=== PATIENT | female | born 1990 | race Asian ===

== ENCOUNTER → 2022-05-16 | Outpatient (CLI) | payer OTHER | LOC: M WHC 08:49 | PROVIDERS: ATTEND Registered Nurse | DX: Z36.89 Encounter for other specified antenatal screening (principal); O32.1XX0 Maternal care for breech presentation, not applicable or unspecified; Z3A.20 20 weeks gestation of pregnancy; O28.3 Abnormal ultrasonic finding on antenatal screening of mother ==

== ENCOUNTER 2022-09-11 17:19 | Emergency (ER) | payer OTHER ==
[~2022-09-11] VITALS: Ht 152.4 cm; Wt 60.8 kg
[2022-09-11 17:20] VITALS: BP 118/76; TEMP 97.9; O2SAT 97
[2022-09-11] MEDS ORDERED: PRENTAB9 PO (18:17)
== END 2022-09-11 19:44 | disposition admitted as inpatient to this hospital (09) ==
LOC: M ED 17:19
DX: Z53.21 Procedure and treatment not carried out due to patient leaving prior to being seen by health care provider (principal)

== ENCOUNTER 2022-09-11 17:29 | Outpatient (CLI) | payer OTHER ==
[~2022-09-11] VITALS: Ht 152.4 cm; Wt 61.0 kg
[2022-09-11] MEDS ORDERED: PRENTAB9 PO (18:17)
[2022-09-11] MEDS ORDERED: HOME MED LIST COMPLETE! XX SCH (18:20)
[2022-09-11 18:52] LABS: HEMATOCRIT 36.8 % (36.0-47.0); HEMOGLOBIN 12.7 g/dl (12.0-15.5); MEAN CORPUSCULAR HEMOGLOBIN 33.3 pg (27.0-33.0); MEAN CORPUSCULAR HGB CONC 34.5 g/dl (32.0-36.5); MEAN CORPUSCULAR VOLUME 96.6 fl (80.0-96.0); PLATELET COUNT, AUTOMATED 107 10^3/uL (150-450); RED BLOOD COUNT 3.81 10^6/uL (4.00-5.40); WHITE BLOOD COUNT 7.5 10^3/uL (4.0-10.0)
[2022-09-11] MEDS ORDERED: LR 1,000 ML IV SCH (19:05)
[2022-09-11 19:13] LABS: ALBUMIN 2.7 G/DL (3.2-5.2); ALKALINE PHOSPHATASE 116 U/L (46-116); ALT/SGPT 15 U/L (7.0-40); AST/SGOT 18 U/L (<34); BILIRUBIN,TOTAL 0.4 MG/DL (0.3-1.2); BLOOD UREA NITROGEN 11 MG/DL (9-23); CALCIUM LEVEL 8.6 MG/DL (8.5-10.1); CARBON DIOXIDE LEVEL 21 MMOL/L (20-31); CHLORIDE LEVEL 105 MMOL/L (98-107); CREATININE FOR GFR 0.59 MG/DL (0.55-1.30); GLOMERULAR FILTRATION RATE > 60.0 (>60); GLUCOSE, FASTING 78 MG/DL (60-100); POTASSIUM SERUM 3.8 MMOL/L (3.5-5.1); SODIUM LEVEL 135 MMOL/L (136-145)
[2022-09-11 19:26] LABS: APPEARANCE, URINE CLEAR (CLEAR); BACTERIA, URINE AUTO NEGATIVE (NEGATIVE); BILIRUBIN, URINE AUTO NEGATIVE (NEGATIVE); BLOOD, URINE BLOOD NEGATIVE (NEGATIVE); COLOR, URINE STRAW (YELLOW); GLUCOSE, URINE (UA) AUTO 1+ mg/dL (NEGATIVE); KETONE, URINE AUTO NEGATIVE (NEGATIVE); LEUKOCYTE ESTERASE, URINE AUTO NEGATIVE (NEGATIVE); NITRITE, URINE AUTO NEGATIVE (NEGATIVE); PROTEIN, URINE AUTO NEGATIVE (NEGATIVE); RBC, URINE AUTO 0 /HPF (0-3); SPECIFIC GRAVITY URINE AUTO 1.005 (1.002-1.035); SQUAMOUS EPITHELIAL CELL UR AU 1 /HPF (0-6); UROBILINOGEN, URINE AUTO 0.2 mg/dL (0.0-2.0); WBC, URINE AUTO 0 /HPF (0-3)
[2022-09-11 19:35] VITALS: BP 101/57
[2022-09-11] MEDS ORDERED: ACETAMINOPHEN 500 MG TAB PO ONE (19:35)
[2022-09-11] MEDS ORDERED: FLUCONAZOLE 50MG TABLET PO ONE (19:35)
[2022-09-11] MEDS ORDERED: CYCLOBENZAPRINE 10MG TABLET PO ONE (19:35)
[2022-09-11 19:41] LABS: INR 0.88; PROTHROMBIN TIME 12.1 SECONDS (12.5-14.5)
== END 2022-09-11 21:04 | disposition home or self-care (01) ==
LOC: M LDO 17:29
PROVIDERS: ATTEND Obstetrics & Gynecology
DX: O26.893 Other specified pregnancy related conditions, third trimester (principal); R25.2 Cramp and spasm; Z3A.34 34 weeks gestation of pregnancy

== ENCOUNTER 2022-10-03 14:39 | Inpatient (IN) | payer OTHER ==
[2022-10-03] VITALS (8 sets, daily range): BP systolic 76–111; BP diastolic 48–71
[~2022-10-03] VITALS: Ht 152.4 cm; Wt 61.6 kg
[~2022-10-03 14:39] MED LIST: PRENTAB9 PO
[2022-10-03] MEDS ORDERED: HOME MED LIST COMPLETE! XX SCH (15:15)
[2022-10-03 16:23] LABS: HEMATOCRIT 37.2 % (36.0-47.0); HEMOGLOBIN 12.8 g/dl (12.0-15.5); MEAN CORPUSCULAR HEMOGLOBIN 33.3 pg (27.0-33.0); MEAN CORPUSCULAR HGB CONC 34.4 g/dl (32.0-36.5); MEAN CORPUSCULAR VOLUME 96.9 fl (80.0-96.0); PLATELET COUNT, AUTOMATED 101 10^3/uL (150-450); RED BLOOD COUNT 3.84 10^6/uL (4.00-5.40); WHITE BLOOD COUNT 7.7 10^3/uL (4.0-10.0)
[2022-10-03 16:43] LABS: INR 0.83; PROTHROMBIN TIME 11.6 SECONDS (12.5-14.5)
[2022-10-03 16:44] LABS: PARTIAL THROMBOPLASTIN TIME 26.5 SECONDS (24.8-34.2)
[2022-10-03] MEDS ORDERED: LIDOCAINE 1% MDV 20ML VIAL INFIL PRN (17:25)
[2022-10-03] MEDS ORDERED: METHYLERGONOVINE MALEATE 0.2MG/ML 1ML VIAL IM PRN (17:25)
[2022-10-03] MEDS ORDERED: OXYTOCIN DRIP 30 UNITS in IV 1 EA IV PRN ×4 (17:25)
[2022-10-03] MEDS ORDERED: TRANEXAMIC ACID INJection 1,000 MG in NS 100 ML IV PRN (17:25)
[2022-10-03] MEDS: miSOPROStol 25MCG 1/4 TABLET PO SCH ×2 (18:18→22:22)
[2022-10-04] VITALS (37 sets, daily range): BP systolic 81–137; BP diastolic 50–76
[2022-10-04] MEDS: miSOPROStol 25MCG 1/4 TABLET PO SCH (02:53)
[2022-10-04] MEDS ORDERED: PROMETHAZINE 25MG/ML 1ML VIAL IV ONE (08:55)
[2022-10-04] MEDS ORDERED: NALBUPHINE HCL 10 MG/ML 1ML AMP IV PRN (08:55)
[2022-10-04] MEDS ORDERED: OXYTOCIN DRIP 30 UNITS in IV 1 EA IV SCH (11:05)
[2022-10-04 13:31] LABS: HEMATOCRIT 41.4 % (36.0-47.0); HEMOGLOBIN 13.7 g/dl (12.0-15.5); MEAN CORPUSCULAR HEMOGLOBIN 33.1 pg (27.0-33.0); MEAN CORPUSCULAR HGB CONC 33.1 g/dl (32.0-36.5); RED BLOOD COUNT 4.14 10^6/uL (4.00-5.40); WHITE BLOOD COUNT 9.2 10^3/uL (4.0-10.0)
[2022-10-04 13:53] LABS: PLATELET COUNT, AUTOMATED 96 10^3/uL (150-450)
[2022-10-04] MEDS: LR 1,000 ML IV SCH ×2 (18:53→19:05)
[2022-10-05] VITALS (43 sets, daily range): BP systolic 80–250; BP diastolic 47–146; TEMP 97.9; O2SAT 95–98
[2022-10-05] MEDS: LR 1,000 ML IV SCH ×7 (00:12→23:55)
[2022-10-05 01:21] LABS: HEMATOCRIT 39.1 % (36.0-47.0); HEMOGLOBIN 13.3 g/dl (12.0-15.5); MEAN CORPUSCULAR HEMOGLOBIN 33.3 pg (27.0-33.0); RED BLOOD COUNT 3.99 10^6/uL (4.00-5.40); WHITE BLOOD COUNT 11.2 10^3/uL (4.0-10.0)
[2022-10-05 01:42] LABS: PLATELET COUNT, AUTOMATED 91 10^3/uL (150-450)
[2022-10-05] MEDS ORDERED: NALOXONE INJ 0.4MG/1ML VIAL IV PRN ×3 (02:00→16:10)
[2022-10-05] MEDS ORDERED: diphenhydrAMINE 50MG/ML VIAL IV PRN ×2 (02:00→16:10)
[2022-10-05] MEDS ORDERED: ePHEDrine SULFATE 25 MG/5 ML(5MG/ML) SYRINGE IVP PRN (02:00)
[2022-10-05] MEDS ORDERED: LR 500 ML IV PRN (02:00)
[2022-10-05] MEDS ORDERED: ONDANSETRON 4MG 2ML VIAL IV PRN ×3 (02:00→16:15)
[2022-10-05] MEDS ORDERED: EPIDURAL/PCA KEYS XX PRN (02:00)
[2022-10-05] MEDS: FENTANYL/ROPIVACAINE/NACL BAG 100 ML EPIDURAL SCH ×2 (02:03→13:20)
[2022-10-05] MEDS ORDERED: ACETAMINOPHEN 1000MG 100ML IV BAG IV ONE ×2 (05:35→15:00)
[2022-10-05] MEDS ORDERED: GENTAMICIN IV ONE (14:10)
[2022-10-05] MEDS ORDERED: FLUID PLACE HOLDER IV ONE (14:10)
[2022-10-05] MEDS ORDERED: ceFAZolin SOD 2 GM in IV 1 EA IV ONE (14:25)
[2022-10-05] MEDS ORDERED: AZITHROMYCIN INJ 500 MG, VIAL MATE ADAPTER 1 EACH in NS 250 ML IV ONE (14:25)
[2022-10-05] MEDS ORDERED: LIDOCAINE 2% W/EPINEPHRINE 20ML VIAL **PRES FREE As Ordered ONE (14:36)
[2022-10-05] MEDS ORDERED: KETOROLAC 60MG 2ML VIAL As Ordered ONE (15:05)
[2022-10-05] MEDS ORDERED: ONDANSETRON 4MG 2ML VIAL As Ordered ONE (15:05)
[2022-10-05] MEDS ORDERED: MORPHINE PRES-FREE INJ 10 MG/10 ML VIAL As Ordered ONE (15:06)
[2022-10-05] MEDS ORDERED: ACETAMINOPHEN 1000MG 100ML IV BAG As Ordered ONE (15:15)
[2022-10-05 15:29] LABS: CORD GAS ABE A -3.9; CORD GAS ABE V -3.6; CORD GAS HCO3 A 22.1 MMOL/L; CORD GAS O2 SAT A 28.8 %; CORD GAS O2 SAT V 64.9 %; CORD GAS PCO2 A 43.6 mmHg; CORD GAS PCO2 V 41.6 mmHg; CORD GAS PH A 7.323 UNITS; CORD GAS PH V 7.341 UNITS; CORD GAS PO2 A 15.2 mmHg; CORD GAS PO2 V 27.4 mmHg; CORD GAS SBC A 19.7 MMOL/L; CORD GAS SBC V 20.7 MMOL/L; CORD GAS TCO2 A 23.5 MMOL/L; CORD GAS TCO2 V 23.3 MMOL/L
[2022-10-05] MEDS ORDERED: METOCLOPRAMIDE INJ 10MG/2ML VIAL IV PRN ×2 (16:10→16:15)
[2022-10-05] MEDS ORDERED: **NOTE PATIENT COMMENT** MISC XX SCH (16:10)
[2022-10-05] MEDS: SLF 3 ML SYR IV SCH (16:10)
[2022-10-05] MEDS ORDERED: fentaNYL 100 MCG/2 ML INJECTION IV PRN (16:10)
[2022-10-05] MEDS ORDERED: MEPERIDINE 25 MG/ML 1ML VIAL IV PRN (16:10)
[2022-10-05] MEDS ORDERED: OXYTOCIN DRIP 30 UNITS in IV 1 EA IV SCH (16:15)
[2022-10-05] MEDS ORDERED: SIMETHICONE 80MG CHEW TAB PO PRN (16:15)
[2022-10-05] MEDS ORDERED: oxyCODONE 5MG TAB PO PRN ×2 (16:15)
[2022-10-05] MEDS ORDERED: RHOGAM 300MCG (1500IU) INJ IM SCH (16:15)
[2022-10-05] MEDS ORDERED: METHYLERGONOVINE MALEATE 0.2MG/ML 1ML VIAL IM PRN (16:15)
[2022-10-05] MEDS ORDERED: OXYTOCIN 30UNITS IN 0.9% NaCl 500ML IV BAG As Ordered ONE (16:21)
[2022-10-05 17:33] LABS: HEMATOCRIT 33.9 % (36.0-47.0); MEAN CORPUSCULAR HEMOGLOBIN 33.5 pg (27.0-33.0); MEAN CORPUSCULAR HGB CONC 33.3 g/dl (32.0-36.5); MEAN CORPUSCULAR VOLUME 100.6 fl (80.0-96.0); RED BLOOD COUNT 3.37 10^6/uL (4.00-5.40); WHITE BLOOD COUNT 13.8 10^3/uL (4.0-10.0)
[2022-10-05 17:36] LABS: HEMOGLOBIN 11.3 g/dl (12.0-15.5)
[2022-10-05 17:37] LABS: PLATELET COUNT, AUTOMATED 84 10^3/uL (150-450)
[2022-10-05] MEDS ORDERED: fentaNYL 100 MCG/2 ML INJECTION As Ordered ONE (18:05)
[2022-10-05] MEDS: ACETAMINOPHEN 500 MG TAB PO SCH (19:39)
[2022-10-05] MEDS: DOCUSATE SODIUM 100MG CAPSULE PO SCH (21:12)
[2022-10-05] MEDS: KETOROLAC 30 MG/ML 1ML VIAL IV SCH (21:12)
[2022-10-06] MEDS: SLF 3 ML SYR IV SCH ×2 (00:10→07:53)
[2022-10-06 02:00] VITALS: BP 104/52; O2SAT 100
[2022-10-06] MEDS: ACETAMINOPHEN 500 MG TAB PO SCH ×4 (02:27→19:55)
[2022-10-06] MEDS: KETOROLAC 30 MG/ML 1ML VIAL IV SCH ×2 (02:28→07:51)
[2022-10-06] MEDS: LR 1,000 ML IV SCH (02:56)
[2022-10-06 06:01] VITALS: BP 107/52; O2SAT 100
[2022-10-06 07:18] LABS: HEMATOCRIT 32.8 % (36.0-47.0); HEMOGLOBIN 10.9 g/dl (12.0-15.5); MEAN CORPUSCULAR HEMOGLOBIN 33.3 pg (27.0-33.0); MEAN CORPUSCULAR HGB CONC 33.2 g/dl (32.0-36.5); MEAN CORPUSCULAR VOLUME 100.3 fl (80.0-96.0); RED BLOOD COUNT 3.27 10^6/uL (4.00-5.40); WHITE BLOOD COUNT 15.1 10^3/uL (4.0-10.0)
[2022-10-06 07:20] LABS: PLATELET COUNT, AUTOMATED 78 10^3/uL (150-450)
[2022-10-06] MEDS: DOCUSATE SODIUM 100MG CAPSULE PO SCH ×2 (07:50→19:55)
[2022-10-06] MEDS: PRENATAL VITAMINS CHEWABLE TABLET PO SCH (07:50)
[2022-10-06 10:00] VITALS: BP 103/58; O2SAT 99
[2022-10-06 14:00] VITALS: BP 94/48; O2SAT 100
[2022-10-06 18:00] VITALS: BP 105/67; O2SAT 100
[2022-10-06] MEDS: IBUPROFEN 800 MG TAB PO SCH (18:38)
[2022-10-06 22:00] VITALS: BP 100/54; O2SAT 98
[2022-10-07] MEDS: IBUPROFEN 800 MG TAB PO SCH ×2 (01:26→09:02)
[2022-10-07] MEDS: ACETAMINOPHEN 500 MG TAB PO SCH ×3 (01:27→14:00)
[2022-10-07 02:00] VITALS: BP 99/59; O2SAT 99
[2022-10-07 06:00] VITALS: BP 101/49; O2SAT 100
[2022-10-07] MEDS ORDERED: MEASLES,MUMPS,RUBELLA VACCINE INJ (MMR-II) SC.IMMUN ONE (09:00)
[2022-10-07] MEDS: PRENATAL VITAMINS CHEWABLE TABLET PO SCH (09:01)
[2022-10-07] MEDS: DOCUSATE SODIUM 100MG CAPSULE PO SCH (09:01)
[2022-10-07 09:06] LABS: BASO % 0.2 % (0.0-1.0); EOS # 0.1 10^3/uL (0.0-0.5); EOS % 0.5 % (0.0-3.0); HEMATOCRIT 31.1 % (36.0-47.0); HEMOGLOBIN 10.5 g/dl (12.0-15.5); LYMPH % 8.2 % (24.0-44.0); MEAN CORPUSCULAR HEMOGLOBIN 33.5 pg (27.0-33.0); MEAN CORPUSCULAR HGB CONC 33.8 g/dl (32.0-36.5); MEAN CORPUSCULAR VOLUME 99.4 fl (80.0-96.0); MONO # 0.6 10^3/uL (0.0-0.8); MONO % 4.7 % (2.0-8.0); NEUTROPHILS # 10.1 10^3/uL (1.5-8.5); NEUTROPHILS % 85.3 % (36.0-66.0); PLATELET COUNT, AUTOMATED 92 10^3/uL (150-450); RED BLOOD COUNT 3.13 10^6/uL (4.00-5.40); WHITE BLOOD COUNT 11.9 10^3/uL (4.0-10.0)
== END 2022-10-07 15:05 | disposition home or self-care (01) | DRG 773 ==
LOC: M LDO 14:39 → M LDI 18:08 → M OBS 10-05 18:20
PROVIDERS: ADMIT Obstetrics & Gynecology; ATTEND Obstetrics & Gynecology
PROC: 10907ZC Drainage of Amniotic Fluid, Therapeutic from Products of Conception, Via Natural or Artificial Opening (ICD-10-PCS; 2022-10-04)
PROC: 3E0P7VZ Introduction of Hormone into Female Reproductive, Via Natural or Artificial Opening (ICD-10-PCS; 2022-10-04)
PROC: 3E033VJ Introduction of Other Hormone into Peripheral Vein, Percutaneous Approach (ICD-10-PCS; 2022-10-05)
PROC: 10D00Z1 Extraction of Products of Conception, Low, Open Approach (ICD-10-PCS; principal; 2022-10-05 14:45)
DX: O48.0 Post-term pregnancy (principal); Z37.0 Single live birth; Z3A.40 40 weeks gestation of pregnancy; O61.0 Failed medical induction of labor